=== PATIENT | female | born 1960 | race Hispanic/Latino ===

== ENCOUNTER 2017-06-29 20:29 | Emergency (ER) | payer BC ==
[~2017-06-29] VITALS: Ht 157.5 cm; Wt 67.1 kg
[~2017-06-29 20:29] MED LIST: CLONIDINE HCL0.3 MG PO; LABETALOL HCL200 MG PO; LISINOPRIL10 MG PO; VASOTEC10 M1 PO
[2017-06-29] MEDS ORDERED: SODIUM CHLORIDE 0.9% 1000ML 1,000 ML IV STA (21:11)
[2017-06-29] MEDS ORDERED: ONDANSETRON HCL INJ 2 MG/ML VIAL IV STA (21:11)
[2017-06-29] MEDS ORDERED: MORPHINE SULFATE 4 MG/ML SYR IV STA (21:11)
[2017-06-29] MEDS ORDERED: LIDOCAINE 1% W/EPINEPHRINE 20 ML VIAL INJ ONE (21:15)
[2017-06-29] MEDS ORDERED: MORPHINE SULFATE 2 MG/ML SYR ONE (21:31)
[2017-06-29 21:32] LABS: BASOPHILS % 0.3 % (0.0-1.0); EOSINOPHILS % 13.3 % (0.0-6.0); HEMATOCRIT 36.7 % (34.2-44.1); HEMOGLOBIN 12.5 g/dL (12.0-16.0); LYMPHOCYTES % 14.3 % (18.0-39.1); MEAN CORPUSCULAR HEMOGLOBIN 29.3 pg (28-32); MEAN CORPUSCULAR HGB CONC 34.1 g/dL (31-35); MEAN CORPUSCULAR VOLUME 86.2 fL (81-99); MONOCYTES # (AUTO) 0.6 (0.2-0.8); MONOCYTES % 8.8 % (4.4-11.3); NEUTROPHILS # (AUTO) 4.6 (2.1-6.9); NEUTROPHILS % 62.8 % (38.7-80.0); PLATELET COUNT 277 x10e3/uL (140-360); RED BLOOD COUNT 4.26 x10e6/uL (3.6-5.1); RED CELL DISTRIBUTION WIDTH 13.2 % (11.7-14.4)
[2017-06-29 21:47] LABS: ALBUMIN 3.9 g/dL (3.5-5.0); ANION GAP 14.8 mmol/L (8-16); CREATININE, SERUM 1.08 mg/dL (0.57-1.11); POTASSIUM 3.8 mmol/L (3.5-5.1)
[2017-06-29 22:11] LABS: EOSINOPHILS % (MANUAL) 8 % (0-7); LYMPHOCYTES % (MANUAL) 9 % (19-48); MONOCYTES % (MANUAL) 9 % (3.4-9.0); NEUTROPHILS % (MANUAL) 72 % (40-74)
[2017-06-29 22:12] LABS: PLATELET ESTIMATE ADEQUATE; PLATELET MORPHOLOGY COMMENT MODERATE LARGE; RBC MORPHOLOGY COMMENT NORMAL
[2017-06-29 22:27] VITALS: BP 135/68
== END 2017-06-29 22:29 | disposition home or self-care (01) ==
LOC: ER 20:29
DX: L02.01 Cutaneous abscess of face (principal); I10 Essential (primary) hypertension
CPT/HCPCS: 10061; 36415; 80053; 85025; 99284; J2270; J2405; J7030